=== PATIENT | male | born 1995 | race Hispanic/Latino ===

== ENCOUNTER 2016-11-16 16:36 | Outpatient (CLI) | payer BC ==
--- NOTE | 2016-11-16 18:40 | RAD ---
RIGHT FOOT THREE VIEWS: 11/16/16 INDICATION: Right foot pain. FINDINGS: Lisfranc joint is maintained. There is no evidence of acute fracture or subluxation. IMPRESSION: No acute osseous abnormality. POS: [facility]
== END 2016-11-16 16:37 | disposition home or self-care (01) ==
LOC: NAV RAD 16:36
PROVIDERS: ATTEND Family Medicine
DX: M79.671 Pain in right foot (principal)

== ENCOUNTER 2017-11-28 15:59 | Outpatient (CLI) | payer BC ==
--- NOTE | 2017-11-28 16:55 | RAD ---
THREE VIEWS OF THE RIGHT WRIST: 11/28/17 COMPARISON: None. HISTORY: Right wrist pain. No history of injury. FINDINGS: There is no widening of the scapholunate interval. There is no displaced fracture or evidence of disl ocation seen. Alignment appears normal on the lateral examination. IMPRESSION: No acute findings. POS: [facility]
== END 2017-11-28 16:00 | disposition home or self-care (01) ==
LOC: NAV RAD 15:59
PROVIDERS: ATTEND Family Medicine
DX: M25.531 Pain in right wrist (principal)